=== PATIENT | female | born 1985 | race African-American/Black ===

== ENCOUNTER 2020-08-10 12:10 | Outpatient (RCR) | payer OTHER, SELFPAY ==
[2020-08-10 12:42] VITALS: BMI 38.4
[2020-08-10] MEDS: METHOTREXATE SODIUM/PF 50 MG/2 ML VIAL 48.75 MG IM ×2 (14:07→14:10)
== END 2020-08-18 07:49 | disposition home or self-care (01) ==
LOC: ANHOBOP 12:10
PROVIDERS: Visit Provider Obstetrics & Gynecology
DX: O02.1 Missed abortion (principal); Z3A.00 Weeks of gestation of pregnancy not specified
CPT/HCPCS: 96372; J9260

== ENCOUNTER 2020-09-03 16:44 | Observation (INO) | payer OTHER, SELFPAY ==
--- NOTE | ~2020-09-03 | US_ITS ---
EXAMINATION: US OB <=14 wk fetus w TV EXAM DATE: 09/03/2020 18:26 INDICATION: Right lower quadrant pain. Ectopic , had methotrexate August 10 oanh lynn TECHNIQUE: Pelvic obstetrical transabdominal and transpelvic sonogram was performed by a lubna eaton. There are multiple grayscale and Doppler images available for interpretation. There are no earli er studies of this gestation for comparison. FINDINGS: Uterus measures 11.3 x 5.7 x 6.7 cm. There is an echogenic focus in the posterior myometriu m probably fibroid measuring 8 mm. No intrauterine identified, endometrial stripe measures 4 mm which is normal. Right ovary measures 3.8 x 2.2 x 1.9 cm, Doppler flow confirmed. Contiguous and just lateral to the r ight ovary is an adnexal avascular mass like region measuring 3.3 x 2.6 x 4.0 cm. Avascularity sugges ts that this is a hematoma, could be location of a tubal ectopic . Correlation could be made with prior imaging if available. No viable gestation identified in this. Left ovary measures 2.7 x 1.9 x 1.5 cm, demonstrates Doppler flow and is morphologically normal. IMPRESSION: Right adnexal avascular mass probably fallopian tube hematoma given history provided, wi thout gestation sac or heart rate identified. No free pelvic fluid/hemorrhage. Reviewed, dictated and finalized at location A. HOIST OPERATOR HELPER IMPRESSION: Right adnexal avascular mass probably fallopian tube hematoma give n history provided, without gestation sac or heart rate identified. No fr ee pelvic fluid/hemorrhage.
[2020-09-03 16:52] VITALS: BP 143/102; PULSE 77; RESP 16; TEMP 36.4; O2SAT 100
[2020-09-03 17:12] LABS: Basophils Percent Auto 0.4 % (0.2-1.2); Eosinophils Absolute Auto 0.1 K/mm3 (0-0.3); Eosinophils Percent Auto 0.8 % (0-4.4); Hematocrit 32.7 % (37.0-47.0); Hemoglobin 10.2 g/dL (12.0-15.0); Immature Granulocyte Absolute 0.03 K/mm3 (0.00-0.031); Immature Granulocyte Percent A 0.4 % (0-0.5); Lymphocytes Absolute Auto 1.93 K/mm3 (0.9-3.2); Lymphocytes Percent Auto 26.8 % (18.3-44.2); Mean Corpuscular HGB Conc 31.2 g/dl (32-36); Mean Corpuscular Hemoglobin 24.4 pg (26-34); Mean Corpuscular Volume 78.2 fl (80-100); Mean Platelet Volume 10.3 fl (7.4-10.4); Monocytes Absolute Auto 0.6 K/mm3 (0.1-0.6); Monocytes Percent Auto 8.8 % (2.6-8.5); Neutrophils Absolute Auto 4.5 K/mm3 (1.3-6.7); Neutrophils Percent Auto 62.8 % (45.5-73.1); Platelet Count Result 340 k/mm3 (150-375); Red Blood Count 4.18 M/mm3 (4.2-5.4); Red Cell Distribution Width 16.2 % (11.5-14.5); White Blood Count 7.2 K/mm3 (4.5-10.0)
[2020-09-03 17:19] LABS: Add Urine Microscopic? YES; Appearance Urine Clear (Clear); Bacteria Urine Trace /hpf; Bilirubin Urine Negative (Negative); Blood Urine 3+ (Negative); Color Urine Straw (Yellow); Glucose Urine UA Negative (Negative); Ketones Urine Negative (Negative); Leukocyte Esterase Ur Negative LEU/UL (Negative); Mucus Urine Rare /lpf; Nitrate Urine Negative (Negative); Protein Urine Negative (Negative); Specific Grav Ur 1.013 (1.001-1.035); Squamous Epithelial Cell Urine Moderate /hpf (Few); WBC Urine 0-3 /hpf
[2020-09-03 17:31] LABS: Alanine Aminotransferase 7 U/L (4-35); Albumin Level 4.2 g/dL (3.5-5.1); Alkaline Phosphatase 65 U/L (38-126); Anion Gap 4 mmol/L (8-16); Aspartate Amino Transferase 16 U/L (14-36); Bilirubin,Total 0.4 mg/dL (0.2-1.3); Blood Urea Nitrogen 7 mg/dL (7-17); Calcium 8.7 mg/dL (8.4-10.2); Carbon Dioxide 26 mmol/L (22-30); Chloride 108 mmol/L (98-107); Estimated CRCL calculation 77 ml/min; Estimated Glomerular Filt Rate > 60; Glucose 112 mg/dL (65-105); Lipase 84 U/L (23-300); Potassium 3.9 mmol/L (3.4-5.0); Sodium 138 mmol/L (137-145)
[2020-09-03] MEDS: SODIUM CHLORIDE 0.9% IV 1,000 ML 999 ML IV CONT (17:31)
[2020-09-03 17:49] LABS: Basophils Percent Auto 0.2 % (0.2-1.2); Eosinophils Absolute Auto 0.1 K/mm3 (0-0.3); Eosinophils Percent Auto 0.7 % (0-4.4); Hematocrit 31.2 % (37.0-47.0); Hemoglobin 9.9 g/dL (12.0-15.0); Immature Granulocyte Absolute 0.03 K/mm3 (0.00-0.031); Immature Granulocyte Percent A 0.4 % (0-0.5); Lymphocytes Percent Auto 22.4 % (18.3-44.2); Mean Corpuscular HGB Conc 31.7 g/dl (32-36); Mean Corpuscular Hemoglobin 24.4 pg (26-34); Mean Platelet Volume 9.8 fl (7.4-10.4); Monocytes Absolute Auto 0.9 K/mm3 (0.1-0.6); Monocytes Percent Auto 10.6 % (2.6-8.5); Neutrophils Absolute Auto 5.3 K/mm3 (1.3-6.7); Neutrophils Percent Auto 65.7 % (45.5-73.1); Platelet Count Result 311 k/mm3 (150-375); Red Blood Count 4.05 M/mm3 (4.2-5.4)
[2020-09-03 17:50] LABS: Beta HCG Quantitative 147.73 mIU/ML
--- NOTE | 2020-09-03 17:57 | ED.ABDPAIN ---
HPI - Abdominal Pain General Chief Complaint: Abdominal Pain Stated Complaint: RLQ ABD PAIN X2D Time Seen by Provider: 09/03/20 16:51 Source: patient and old records reviewed Mode of arrival: ambulatory Limitations: no limitations History of Present Illness HPI narrative: Patient is a 34-year-old female who presents with right adnexal pelvic pain noting sharp stabbing pain worsening over the last several days patient notes she is G6, P4 on July 30 at [facility] had a D&C after which she followed up August 08 at [facility] was given 2 doses of methotrexate never followed up had intermittent pain and vaginal bleeding until 27 August and presents now noting continued and worsening right adnexal pain. Patient never followed up for gynecological reevaluation Related Data Home Medications Medication Instructions Recorded Confirmed No Home Medications 09/03/20 09/03/20 Allergies Allergy/AdvReac Type Severity Reaction Status Date / Time Sulfa (Sulfonamide Allergy Unknown Verified 09/03/20 16:59 Antibiotics) Review of Systems Review of Systems: All systems reviewed & are unremarkable except as noted in HPI and below PMFSH Social History Social History (Updated 09/03/20 @ 17:58 by Darrick Cintron PA-C) Smoking status: Never smoker Exam Narrative: Exam Narrative: GENERAL: Well-appearing, well-nourished, and in no acute distress. HEAD: Normocephalic, atraumatic. EYES: PERRLA and EOMI. ENT: Nares clear, no rhinorrhea or epistaxis. Mucous membranes moist. CHEST: Clear to auscultation. No respiratory distress. No wheezes rales or rhonchi HEART: Regular rate and rhythm. No murmur heard. Normal peripheral pulses. ABDOMEN: Soft, right adnexal pain, nondistended EXTREMITIES: Normal range of motion. No edema. SKIN: Warm, dry, no rash. NEURO: No focal deficits. Alert and oriented x3. Cranial nerves II through XII grossly intact PSYCH: Normal mood and affect. Course Course Emergency Course: Patient evaluated in the emergency department found to have what sounds like a hematoma in the right adnexa will be placed in hospital will be following with gynecology will be placed in hospital overnight to the gynecology service for reevaluation and discussion of management in the morning patient hemodynamically stable ABCs intact and stable Consultations Consultation #1: Spoke with Dr. Elliott regarding the patient's management he would like to watch the patient overnight repeat serum quant in the morning for discussion of further management with patient in the morning Date: 09/03/20 Time: 19:21 Vital Signs Vital signs: Vital Signs Temperature 97.5 F L 09/03/20 16:52 Pulse Rate 77 09/03/20 16:52 Respiratory Rate 16 09/03/20 16:52 Blood Pressure 143/102 H 09/03/20 16:52 Pulse Oximetry 100 09/03/20 16:52 Temperature 97.5 F L 09/03/20 16:52 Pulse Rate 73 09/03/20 18:52 Respiratory Rate 18 09/03/20 18:52 Blood Pressure 133/76 09/03/20 18:52 Pulse Oximetry 100 09/03/20 18:52 MDM - Abdominal Pain MDM Narrative Medical decision making narrative: Patient was found to have what sounds like a hematoma in the right fallopian tube will be placed in hospital for pain management and observation overnight with reevaluation of gynecology service in the morning patient is afebrile nontoxic-appearing no distress and agreeing to stay in hospital and felt appropriate for inpatient evaluation and management patient agrees with this plan Lab Data Result diagrams: 09/03/20 17:44 09/03/20 17:05 Labs: Lab Results 09/03/20 09/03/20 09/03/20 Range/Units 17:05 17:05 17:05 WBC 7.2 (4.5-10.0) K/mm3 RBC 4.18 L (4.2-5.4) M/mm3 Hgb 10.2 L (12.0-15.0) g/dL Hct 32.7 L (37.0-47.0) % MCV 78.2 L (80-100) fl MCH 24.4 L (26-34) pg MCHC 31.2 L (32-36) g/dl RDW 16.2 H (11.5-14.5) % Plt Count 340 (150-375) k/mm3 MPV 10.3 (
[2020-09-03 17:59] LABS: Prothrombin Time 13.3 Seconds (11.1-14.7)
[2020-09-03 18:00] LABS: Partial Thromboplastin Time 29.5 SECONDS (22.3-36.8)
[2020-09-03 18:52] VITALS: BP 133/76; PULSE 73; RESP 18; O2SAT 100
[2020-09-03] MEDS: MORPHINE SULFATE (*CRX) 4 MG/ML INJ IV PUSH (19:05)
[2020-09-03 19:59] VITALS: BP 126/84; PULSE 70; RESP 22; O2SAT 99
[2020-09-03] MEDS: FAMOTIDINE 20 MG/2 ML VIAL IV PUSH (22:22)
[2020-09-03] MEDS: LACTATED RINGERS 1,000 ML 125 ML IV CONT (22:22)
[2020-09-03 22:37] VITALS: BP 122/68; PULSE 69
[2020-09-03] MEDS: MORPHINE SULFATE (*CRX) 2 MG/ML INJ 4 MG IV PUSH (22:38)
[2020-09-03 22:58] VITALS: BMI 39.5
--- NOTE | 2020-09-03 23:02 | OBADM ---
This patient, Lena Yu, admitted to the OB room OB Post 112 for observation. Patient/family oriented to hospital policies and general routines including ID bracelet, bed and alarms, visiting hours, pain management, procedures, bathroom and other care routines, personal items, smoking policy, room service/diet, and visiting hours. Patient/Family are encouraged to report perceived risks to care and to ask questions if they do not understand what they are told or what they should do.
[2020-09-03 23:25] VITALS: TEMP 37.4
[2020-09-04] VITALS (19 sets, daily range): BP systolic 96–142; BP diastolic 61–90; PULSE 68–93; RESP 15–22; TEMP 36.2–36.8; O2SAT 95–100
--- NOTE | 2020-09-04 00:33 | PC.NURSE ---
Called Sarah SOLIS to update him on pt status. pt complains of pain 10/10 after morphine and IV tylenol. stated orders for 100mcg fentanyl PRN Q2hrs.
[2020-09-04] MEDS: fentaNYL CITRATE INJ (*CRX) 100 MCG/2 ML VIAL IV PUSH ×4 (00:40→09:26)
--- NOTE | 2020-09-04 03:51 | PC.NURSE ---
0130 Pt stated her pain level went from 10 to 7 after fentanyl. Pt given heating pad to help alleviate pain. Pt stated she would call out if she needs more pain medication through the night.
[2020-09-04 06:22] LABS: Basophils Percent Auto 0.2 % (0.2-1.2); Eosinophils Absolute Auto 0.1 K/mm3 (0-0.3); Eosinophils Percent Auto 1.2 % (0-4.4); Immature Granulocyte Absolute 0.02 K/mm3 (0.00-0.031); Immature Granulocyte Percent A 0.3 % (0-0.5); Lymphocytes Absolute Auto 2.01 K/mm3 (0.9-3.2); Lymphocytes Percent Auto 33.3 % (18.3-44.2); Mean Corpuscular Hemoglobin 24.2 pg (26-34); Mean Platelet Volume 10.5 fl (7.4-10.4); Monocytes Absolute Auto 0.5 K/mm3 (0.1-0.6); Monocytes Percent Auto 8.8 % (2.6-8.5); Neutrophils Absolute Auto 3.4 K/mm3 (1.3-6.7); Neutrophils Percent Auto 56.2 % (45.5-73.1); Platelet Count Result 286 k/mm3 (150-375); Red Blood Count 3.72 M/mm3 (4.2-5.4); Red Cell Distribution Width 16.1 % (11.5-14.5)
[2020-09-04 06:42] LABS: Anion Gap 3 mmol/L (8-16); Blood Urea Nitrogen 4 mg/dL (7-17); Calcium 8.4 mg/dL (8.4-10.2); Carbon Dioxide 27 mmol/L (22-30); Chloride 107 mmol/L (98-107); Estimated CRCL calculation 85 ml/min; Estimated Glomerular Filt Rate > 60; Glucose 90 mg/dL (65-105); Potassium 3.8 mmol/L (3.4-5.0); Sodium 137 mmol/L (137-145)
[2020-09-04 06:54] LABS: Beta HCG Quantitative 101.74 mIU/ML
[2020-09-04] MEDS: LACTATED RINGERS 1,000 ML 125 ML IV CONT (07:26)
[2020-09-04] MEDS: FAMOTIDINE 20 MG/2 ML VIAL IV PUSH (09:26)
[2020-09-04] MEDS: ONDANSETRON INJ 4 MG/2 ML VIAL IV PUSH ×2 (09:26→13:55)
--- NOTE | 2020-09-04 09:46 | PC.NURSE ---
0930- called,informed pt is still rating her pain 10/10 and is asking what the plan is for today. states he will be in soon to see pt.
--- NOTE | 2020-09-04 10:26 | PM.IMHP ---
H&P: HPI History of Present Illness Date/Time: 09/04/20 10:26 Chief Complaint: Pelvic pain Narrative: Lena Yu is a 34 year old female with severe pelvic pain. She was recently treated for ectopic . She was treated with methotrexate. She began having sudden onset pelvic pain yesterday. She was evaluated in the ER. She was found to have a hematoma and her right fallopian tube. Patient I discussed the situation in detail. We discussed observation with pain control and surgical treatment. Patient would like definitive treatment for this severe pain. She denies any vaginal bleeding. She denies any nausea, vomiting, fever, chills. She denies any chest pain or shortness of breath. Review of Systems Constitutional: Constitutional: Reports no additional constitutional complaints, Denies fatigue, Denies headache(s), Denies lethargy and Denies weakness Eyes: Eyes: Reports no additional eye complaints, Denies blurry vision and Denies photophobia ENT: Reports as per HPI, Denies headache(s) and Denies neck pain Cardiovascular: Cardiovascular: Denies chest pain, Denies diaphoresis, Denies leg edema, Denies palpitations and Denies dyspnea Respiratory: Respiratory: Denies hemoptysis, Denies dyspnea and Denies wheezing Gastrointestinal: Gastrointestinal: Denies abdominal pain, Denies melena, Denies bloating, Denies hematochezia, Denies nausea and Denies vomiting Genitourinary: Genitourinary: Reports no additional female genitourinary complaints Musculoskeletal: Musculoskeletal: Denies joint swelling, Denies neck pain, Denies numbness and Denies stiffness Neurologic: Denies Abnormal speech present, Denies confusion, Denies headache(s), Denies numbness and Denies weakness Psychiatric: Psychiatric: Denies anxiety, Denies confusion, Denies depression, Denies homicidal ideation and Denies suicidal ideation Endocrine: Endocrine: Denies fatigue and Denies palpitations Allergic/Immunologic: Allergic/Immunologic: Denies wheezing PMF Social History Social History (Updated 09/03/20 @ 17:58 by Darrick Cintron PA-C) Smoking status: Never smoker Meds Home Medications and Allergies Home Medications Medication Instructions Recorded Confirmed Type No Home Medications 09/03/20 09/03/20 History Allergies Allergy/AdvReac Type Severity Reaction Status Date / Time Sulfa (Sulfonamide Allergy Unknown Verified 09/03/20 16:59 Antibiotics) Vital Signs Vital Signs - 24 hr 09/03/20 16:52 09/03/20 18:52 09/03/20 19:59 Temperature 97.5 F L Pulse Rate 77 73 70 Respiratory Rate 16 18 22 H Blood Pressure 143/102 H 133/76 126/84 Pulse Oximetry 100 100 99 09/03/20 22:37 09/03/20 23:25 09/04/20 04:03 Temperature 99.4 F 98.2 F Pulse Rate 69 68 Respiratory Rate Blood Pressure 122/68 115/70 Pulse Oximetry 09/04/20 07:28 09/04/20 07:29 Temperature 98.2 F Pulse Rate 73 Respiratory Rate 15 Blood Pressure 111/66 Pulse Oximetry Exam Const: General: healthy appearing, comfortable and no acute distress; No confusion Orientation/consciousness: No confusion Eyes: Direct Ophthalmoscopy: No photophobia Resp: Auscultation: clear to auscultation bilaterally, no rales, no rhonchi and no wheezes Cardio: Rate: regular rate Heart sounds: no click, no murmurs and no rubs GI: Inspection: non-distended GI Palp: Yes Tenderness to palpation present (GI) and Yes Guarding due to palpation present (GI) Auscultation: normal bowel sounds Neuro: General: No confusion Speech: No Abnormal speech present Extrem: General: normal to inspection, no pedal edema and no calf tenderness H&P: Results Labs Labs: Short CBC 09/03/20 09/03/20 09/04/20 Range/Units 17:05 17:44 05:43 WBC 7.2 8.0 6.0 (4.5-10.0) K/mm3 Hgb 10.2 L 9.9 L 9.0 L (12.0-15.0) g/dL Hct 32.7 L 31.2 L 29.0 L (37.0-47.0) % Plt Count 340 311 286 (150-375) k/mm3 [facility] 09/03/20 09/03/20 09/04/20
--- NOTE | 2020-09-04 11:17 | WPDANESEPP ---
Anes - Eval Pre Procedure Procedure: laparoscopic bilateral salpingectomy Operation Date: 09/04/20 12:00 Proposed Procedures p Diagnostic Laparoscopy Pos Lap Lap Salpingectomy - Gavino Smith MD Date/Time: 09/04/20 11:17 Surgeon: Sarah Preop Diagnosis: ectopic Pre Op Diagnosis: tubal Patient Data Age: 34 Gender: F Height: 5 ft 2 in Weight: 98 kg Last Vital Signs Temp 36.8 C 09/04/20 07:28 Pulse 73 09/04/20 07:29 Resp 15 09/04/20 07:28 BP 111/66 09/04/20 07:29 Pulse Ox 99 09/03/20 19:59 Allergies Allergy/AdvReac Type Severity Reaction Status Date / Time Sulfa (Sulfonamide Allergy Unknown Verified 09/03/20 16:59 Antibiotics) Home Medications Medication Instructions Recorded Confirmed Type No Home Medications 09/03/20 09/03/20 History Laboratory Tests 09/03/20 09/03/20 09/03/20 17:05 17:05 17:05 WBC 7.2 K/mm3 K/mm3 (4.5-10.0) RBC 4.18 M/mm3 L M/mm3 (4.2-5.4) Hgb 10.2 g/dL L g/dL (12.0-15.0) Hct 32.7 % L % (37.0-47.0) MCV 78.2 fl L fl (80-100) MCH 24.4 pg L pg (26-34) MCHC 31.2 g/dl L g/dl (32-36) RDW 16.2 % H % (11.5-14.5) Plt Count 340 k/mm3 k/mm3 (150-375) MPV 10.3 fl fl (7.4-10.4) Immature Gran % (Auto) 0.4 % % (0-0.5) Neut % (Auto) 62.8 % % (45.5-73.1) Lymph % (Auto) 26.8 % % (18.3-44.2) [place] % (Auto) 8.8 % H % (2.6-8.5) Eos % (Auto) 0.8 % % (0-4.4) Baso % (Auto) 0.4 % % (0.2-1.2) Lymph # (Auto) 1.93 K/mm3 K/mm3 (0.9-3.2) [place] # (Auto) 0.6 K/mm3 K/mm3 (0.1-0.6) Eos # (Auto) 0.1 K/mm3 K/mm3 (0-0.3) Baso # (Auto) 0.0 K/mm3 K/mm3 (0.0-0.1) Abs Immat Gran (auto) 0.03 K/mm3 K/mm3 (0.00-0.031) Absolute Neuts (auto) 4.5 K/mm3 K/mm3 (1.3-6.7) Absolute Nucleated RBC 0.0 K/mm3 K/mm3 (0.0-0.012) Nucleated RBC % 0.0 % % (0.0-0.2) PT INR APTT Sodium Cancelled Potassium Cancelled Chloride Cancelled Carbon Dioxide Cancelled Anion Gap Cancelled BUN Cancelled Creatinine Cancelled Estim Creat Clear Calc Cancelled Estimated GFR Cancelled Glucose Cancelled Calcium Cancelled Total Bilirubin Cancelled AST Cancelled ALT Cancelled Alkaline Phosphatase Cancelled Total Protein Cancelled Albumin Cancelled Lipase Cancelled Beta HCG, Quant Urine Color Straw (Yellow) Urine Appearance Clear (Clear) Urine pH 7.0 (5.0-9.0) Ur Specific [place] 1.013 (1.001-1.035) Urine Protein Negative mg/dL mg/dL (Negative) Urine Glucose (UA) Negative mg/dL mg/dL (Negative) Urine Ketones Negative mg/dL mg/dL (Negative) Ur Blood (Man) 3+ H (Negative) Urine Nitrate Negative (Negative) Urine Bilirubin Negative (Negative) Urine Urobilinogen 2.0 mg/dL H mg/dL (<2.0) Leukocyte Esterase Rfl Negative MATIAS/UL MATIAS/UL (Negative) Urine RBC 11-20 /hpf H /hpf (0-2) Urine WBC 0-3 /hpf /hpf Ur Squamous Epith Cells Moderate /hpf H /hpf (Few) Urine Bacteria Trace /hpf /hpf Urine Mucus Rare /lpf /lpf Blood Type Antibody Screen Screen Baby's Blood Type Baby's JUAN CARLOS Doses of RhIg Required 09/03/20 09/03/20 09/03/20 17:05 17:44 17:44 WBC 8.0 K/mm3 K/mm3 (4.5-10.0) RBC 4.05 M/mm3 L M/mm3 (4.2-5.4) Hgb 9.9 g/dL L g/dL (12.0-15.0) Hct 31.2 % L %
--- NOTE | 2020-09-04 11:28 | PC.NURSE ---
1128-Pt transported to recovery in OR for pre-op prep. Report given to Obey MCGEE.
--- NOTE | 2020-09-04 11:29 | PC.NURSE ---
1020- at bedside to discuss pain management options with patient. Decision made to perform laparoscopic surgery,consent signed by patient.
--- NOTE | 2020-09-04 11:39 | WPDANESEFPP ---
Anes - Eval Final PreProcedure Day of Procedure 09/04/20 11:39 Patient weight: morbidly obese Heart: regular rate and rhythm Lungs: clear to auscultation Airway: Mallampati scale class II Neurological: alert and oriented Last oral intake: >/= 8 hours ASA classification: III Emergent: yes Anesthetic plan: proceed Anesthesia type and monitoring: general ETT and standard monitoring Informed Consent: The patient's anesthetic plan and its attendant risks and benefits were discussed with the patient/family/POA. Questions were solicited and answers provided to the satisfaction of the patient/family/POA.
--- NOTE | 2020-09-04 12:42 | PM.PROC ---
Procedure Note - Detailed Date of procedure: 09/04/20 Pre-op diagnosis: tubal Unwanted fertility Post-op diagnosis: same Procedure performed: Description of procedure: The patient was taken the operating room. She was prepped and draped in the dorsal lithotomy position after induction of general anesthesia. A 5 mm left upper quadrant incision was made in the abdominal skin with a scalpel. A 5 mm trocar was inserted the intra-abdominal cavity under direct visualization of the scope. A 11 mm left lower quadrant incision was made with the scalp on the abdominal skin and a 11 mm trocar was inserted the intra-abdominal cavity under direct visualization of the scope. A 5 mm infraumbilical incision was made with scalpel and a 5 mm trocar was inserted into the intra-abdominal cavity under direct visualization of the scope. The right fallopian tube containing ectopic was peeled off of pelvic sidewall. The paratubal tissue was then cauterized transected with LigaSure cautery from the area of the ovary around to the cornea of the uterus where the tube was cauterized and transected. Identical procedure was performed on the left side to remove the tube on the left side. The cut surfaces were cauterized were blood vessels were observed in the adnexa. The fallopian tubes were taken at the left lower quadrant trocar site in an endobag. The pelvis was irrigated with copious amounts of normal saline. The pneumoperitoneum was reduced. The trocars were removed. The patient was taken recovery room stable condition. Sponge lap and needle counts were correct x2. Anesthesia: GETA Surgeon: Gavino Smith MD Estimated blood loss (mL): 20 Drains: No Packing: No Complications: No immediate complications Condition: stable Disposition: PACU Findings: There was a for 3 cm hemorrhagic mass in the right fallopian tube it was adherent to the right pelvic sidewall. The remainder of the pelvis appeared normal, there is small amount of blood in the pelvic free fluid.
[2020-09-04] MEDS: LACTATED RINGERS 1,000 ML 30 ML IV CONT (12:51)
[2020-09-04] MEDS: fentaNYL CITRATE INJ (*CRX) 100 MCG/2 ML VIAL 25 MCG IV PUSH ×4 (13:18→13:29)
--- NOTE | 2020-09-04 15:19 | PC.NURSE ---
1400-Pt transported back from recovery. Pt rates her pain an 8/10 but is sleeping unless asked questions. 1515-Pt had small amount of emesis and was able to void without difficulty.
--- NOTE | 2020-10-02 08:46 | P.DS_ITS ---
DS: Admitting Diagnosis Admitting Diagnosis Admitting Diagnosis: pelvic pain, ectopic DS: Discharge Diagnosis Discharge Diagnosis (1) Ectopic : Code(s): O00.90 - Unspecified ectopic without intrauterine Status: Acute DS: Summary Hospital Course Hospital Course: patient is a 34-year-old known to have an ectopic who presented to the emergency department. The patient was in significant pain in wanted a definitive surgical treatment. We removed the ectopic via laparoscopic surgery. It was adherent to the pelvic sidewall on inflamed. She recovered normally after that. She had typical postoperative course and was quickly discharge. Status at Discharge Functional status at discharge: independent ambulation Time Spent with Patient Time attestation: Total time spent providing and/or coordinating discharge services: DS: Data Data Completed and Pending Completed studies during hospitalization: Pending at discharge 09/04/20 12:16 Surgical [PTH] Routine Discharge Plan Discharge Consulting providers: Tamika Ruiz ; Niall Platt Discharging Clinician: Gavino Smith Patient Disposition: Home, Self-Care Activity: pelvic rest Diet: regular Stand Alone Forms: General Discharge Information Follow-up/Referrals: Gavino Smith MD [Physician] - Discharge Medications: New hydrocodone-acetaminophen 5-325 mg tablet 1 - 2 tablet PO Q4H PRN (Reason: pain) Qty: 14 RF: 0 No Action No Home Medications RF: 0 Date of admission: 09/03/20 19:25 Primary Care Provider: PHYSICIAN,MANAGER CRITICAL CARE Admitting Provider: Gavino Smith Attending physician on admission: Gavino Smith Condition: Improved
== END 2020-09-04 15:56 | disposition home or self-care (01) ==
LOC: ANHED 19:38 → ANHOBPP 19:45
PROVIDERS: Emergency Medicine Emergency Medical Services; Admitting Provider Obstetrics & Gynecology; Emergency Provider Family Medicine; Visit Provider Obstetrics & Gynecology
PROC: (CPT 49320; principal; 2020-09-04 12:00)
DX: O00.101 Right tubal pregnancy without intrauterine pregnancy (principal); G89.18 Other acute postprocedural pain; E66.01 Morbid (severe) obesity due to excess calories
CPT/HCPCS: 59151; 36415; 76801; 76817; 80048; 80053; 81001; 81025; 83690; 84702; 85025; 85461; 85610; 85730; 88302; 88305; 96361; 96365; 96374; 96375; 96376; 99285; A9270; G0378; G0379; J0131; J1170; J2250; J2270; J2405; J3010; J7030; J7120

== ENCOUNTER 2022-08-14 01:45 | Emergency (ER) | payer OTHER, SELFPAY ==
--- NOTE | ~2022-08-14 | XR_ITS ---
Clinical Indication: Chest pain PA and lateral views of the chest: Comparison: None Findings: The lungs are clear, without evidence of focal consolidation or pleural effusion. Cardiome diastinal silhouette is within normal limits. Bones and soft tissues are unremarkable. Impression: Normal chest. Reviewed, dictated and finalized at location . CENTER DIRECTOR Impression: Normal chest.
--- NOTE | ~2022-08-14 | CT_ITS ---
Clinical Indication: Chest pain CT Scan of the Chest with Contrast: Technique: Contiguous sections were acquired throughout the chest after intravenous administration of 100 cc of Omnipaque 350. Coronal maximum intensity projection 3-D reconstructions were created by berhane haddad technologist. Dose reduction technique was used on this scan by utilizing automated exposure contr ol and iterative reconstruction technique. The dose-length product (DLP) was 446.33 mGy-cm. Findings: There is no evidence of any significant mediastinal, hilar or axillary lymphadenopathy. There is no f illing defect in the pulmonary arterial tree to suggest pulmonary embolus. There is no evidence of ao rtic dissection or aneurysm. There is no evidence of pleural or pericardial effusion. The lungs are clear. No pulmonary nodules or infiltrates are noted. Images through the upper abdomen reveal no abnormalities. Impression: No evidence of pulmonary embolus, aortic dissection, or aortic aneurysm. Clear lungs. Reviewed, dictated and finalized at [facility]. TANCE ABUSE RN Impression: No evidence of pulmonary embolus, aortic dissection, or aortic aneurysm. Clear lungs.
--- NOTE | 2022-08-14 01:46 | ECG_ITS ---
Measurements Intervals [place] Rate: 70 P: 54 [place]: 149 QRS: -4 QRSD: 85 T: 25 QT: 401 QTc: 433 Interpretive Statements SINUS RHYTHM WITH SINUS ARRHYTHMIA NORMAL ECG NO PREVIOUS ECG AVAILABLE FOR COMPARISON Electronically Signed On 08-14-2022 6:40:34 SECURITY SERVICES SPECIALIST by Cali Keys D.O.
[2022-08-14 01:47] VITALS: BP 122/77; PULSE 74; RESP 16; TEMP 36.8; O2SAT 100
[2022-08-14 02:08] LABS: Basophils Percent Auto 0.5 % (0.2-1.2); Eosinophils Absolute Auto 0.1 K/mm3 (0-0.3); Eosinophils Percent Auto 1.4 % (0-4.4); Hematocrit 27.2 % (37.0-47.0); Hemoglobin 8.5 g/dL (12.0-15.0); Immature Granulocyte Absolute 0.01 K/mm3 (0.00-0.031); Immature Granulocyte Percent A 0.2 % (0-0.5); Lymphocytes Absolute Auto 2.45 K/mm3 (0.9-3.2); Lymphocytes Percent Auto 37.7 % (18.3-44.2); Mean Corpuscular HGB Conc 31.3 g/dl (32-36); Mean Corpuscular Hemoglobin 23.7 pg (26-34); Mean Platelet Volume 10.4 fl (7.4-10.4); Monocytes Absolute Auto 0.6 K/mm3 (0.1-0.6); Monocytes Percent Auto 9.5 % (2.6-8.5); Neutrophils Absolute Auto 3.3 K/mm3 (1.3-6.7); Neutrophils Percent Auto 50.7 % (45.5-73.1); Platelet Count Result 259 k/mm3 (150-375); Red Blood Count 3.58 M/mm3 (4.2-5.4); Red Cell Distribution Width 15.9 % (11.5-14.5); White Blood Count 6.5 K/mm3 (4.5-10.0)
[2022-08-14 02:19] LABS: Alanine Aminotransferase 12 U/L (6-35); Alkaline Phosphatase 62 U/L (38-126); Anion Gap 4 mmol/L (8-16); Aspartate Amino Transferase 17 U/L (14-36); Bilirubin,Total 0.3 mg/dL (0.2-1.3); Blood Urea Nitrogen 9 mg/dL (7-17); Calcium 8.3 mg/dL (8.4-10.2); Carbon Dioxide 25 mmol/L (22-30); Chloride 105 mmol/L (98-107); Estimated CRCL calculation 85 ml/min; Estimated Glomerular Filt Rate > 60; Glucose 98 mg/dL (65-110); Lipase 98 U/L (23-300); Potassium 3.7 mmol/L (3.4-5.0); Prothrombin Time 12.9 Seconds (11.1-14.7); Sodium 134 mmol/L (137-145)
[2022-08-14 02:20] LABS: Partial Thromboplastin Time 29.9 SECONDS (22.3-36.8)
[2022-08-14 02:30] LABS: Troponin I < 0.012 ng/mL (0.000-0.034)
--- NOTE | 2022-08-14 02:56 | ED.CHESTPAIN ---
HPI - Chest Pain General Chief Complaint: Chest Pain Stated Complaint: CP Time Seen by Provider: 08/14/22 02:24 Source: RN notes reviewed History of Present Illness HPI narrative: Patient presents emergency room from home for chest pain. Patient states pain began approximately 930 this evening the pain is located in the mid and lower midsternal chest and does not radiate described as sharp and stabbing in nature. Nothing makes the pain better or worse. She states mild shortness of breath and nausea with the symptoms she denies any fevers or chills vomiting diarrhea or any other symptoms did not take anything for the pain Related Data Allergies Allergy/AdvReac Type Severity Reaction Status Date / Time Sulfa (Sulfonamide Allergy Unknown Verified 08/14/22 01:47 Antibiotics) Review of Systems Review of Systems: Gen.: Denies fevers or chills ENT: Denies congestion Respiratory: Reports mild shortness of breath CV see HPI GI: Denies abdominal pain emesis or diarrhea, nausea Musculoskeletal: Denies back pain or muscle pain Neuro: Denies numbness, tingling, weakness or focal weakness Skin: Denies rash Except as documented, all other systems reviewed and negative FORMERLY [facility], [facility] Past Medical History Medical History (Updated 08/14/22 @ 06:17 by Sebastián Mills DO) Patient denies significant medical history Social History Social History Smoking status: Never smoker Exam Narrative: APPEARANCE: No acute distress, nontoxic, resting in bed EYES: EOMI HEENT: Normocephalic, atraumatic, OMM RESPIRATORY: No respiratory distress Clear to auscultation bilaterally with no rhonchi wheezing or rales. CARDIOVASCULAR: Regular rate and rhythm without murmurs rubs or gallops. Chest: Tender palpation of lower mid anterior sternum no swelling or ecchymosis pain increased with deep inspiration and movement of the torso ABDOMINAL: Soft, nontender, nondistended, no rebound or guarding MUSCULOSKELETAl: Moves all extremities. No clubbing, cyanosis or edema. NEURO: Awake and alert. Following commands, speech normal, no focal deficits SKIN:: Warm, dry. No rashes lesions or abrasions PSYCHIATRIC: Normal affect/mood, Course Course Emergency Course: Patient states minimal change with GI cocktail but notes improved pain with Toradol Reviewed old records patient with chronic anemia Discussed with patient results of workup and diagnosis. Discussed need for follow-up with primary care, proper use of medication, and reasons to return to the emergency department. Patient understands and agrees to current treatment plan Vital Signs Vital signs: Vital Signs Temperature 98.3 F 08/14/22 01:47 Pulse Rate 74 08/14/22 01:47 Respiratory Rate 16 08/14/22 01:47 Blood Pressure 122/77 08/14/22 01:47 Pulse Oximetry 100 08/14/22 01:47 Oxygen Delivery Room Air 08/14/22 01:47 Temperature 98.3 F 08/14/22 01:47 Pulse Rate 74 08/14/22 01:47 Respiratory Rate 16 08/14/22 01:47 Blood Pressure 122/77 08/14/22 01:47 Pulse Oximetry 100 08/14/22 01:47 Oxygen Delivery Room Air 08/14/22 01:47 MDM - Chest Pain MDM Narrative Medical decision making narrative: Patient's EKGs and labs are without significant high risk changes. Cardiac risk factors reviewed. Patient is felt likely low risk for ACS and reasonable for further risk stratification testing as an outpatient. CTA chest shows no aneurysms pulmonary embolisms or pneumonia.. Patient is felt to be a reasonable candidate for continued evaluation as an outpatient Differential Diagnosis Differential diagnosis: Likely pneumothorax, stable angina, atypical chest pain, costochondritis and chest pain Lab Data Attestation: I reviewed the patient's lab results. 08/14/22 01:57 08/14/22 01:57 Labs: Lab Results 08/14/22 08/14/22 08/14/22 Range/Units 01:57 01:57 01:57 WBC 6.5 (4.5-10.0) K/mm3
[2022-08-14] MEDS: KETOROLAC 30 MG/ML VIAL (*BKC) IV PUSH (04:23)
[2022-08-14 04:25] LABS: D Dimer 0.78 ug/mL (<0.48)
[2022-08-14 05:39] LABS: Troponin I < 0.012 ng/mL (0.000-0.034)
[2022-08-14 06:27] VITALS: BP 124/68; PULSE 72; RESP 18; TEMP 36.6; O2SAT 98
== END 2022-08-14 06:33 | disposition home or self-care (01) ==
PROVIDERS: Emergency Provider Emergency Medicine; PCP Physician Assistant
DX: R07.89 Other chest pain (principal)
CPT/HCPCS: 36415; 71046; 71275; 80053; 83690; 84484; 85025; 85380; 85610; 85730; 93005; 96374; 99284; A9270; J1885; Q9967